=== PATIENT | male | born 1955 | race Caucasian/White ===

== ENCOUNTER 2024-11-17 12:24 | Inpatient (IN) | payer MEDICARE, OTHER ==
[~2024-11-17] VITALS: Ht 177.8 cm; Wt 120.1 kg
[2024-11-17] MEDS ORDERED: METF-1211 PO (12:50)
[2024-11-17] MEDS ORDERED: TAMS0.4C94 PO (12:50)
[2024-11-17] MEDS ORDERED: LISI-662 PO (12:50)
[2024-11-17 13:05] LABS: GLUCOMETER DEV NAME(LOC) ERT.7; GLUCOSE,POINT OF CARE 223 MG/DL (70-110)
[2024-11-17 13:11] LABS: PLATELET COUNT (AUTO) 217 K/uL (150-450); RED BLOOD CELL COUNT(AUTO) 5.00 MIL/uL (4.50-5.90); RED CELL DISTRIBUTION WIDTH 13.8 % (11.5-14.5); WHITE BLOOD COUNT (AUTO) 9.3 K/uL (4.5-11.0)
[2024-11-17 13:21] LABS: CALCIUM, TOTAL 8.6 mg/dL (8.8-10.5); CREATININE 0.51 mg/dL (0.60-1.30); GLOMERULAR FILTR. RATE CALC > 60 mL/min (>60); GLUCOSE,RANDOM 210 mg/dL (70-110); SODIUM SERUM 135 mmol/L (136-145); UREA NITROGEN, BLOOD 11 mg/dL (7-18)
[2024-11-17 13:30] LABS: TROPONIN I-HIGH SENSITIVITY 20 ng/L (<76)
[2024-11-17] MEDS: ONDANSETRON HCL 4 MG/2 ML VIAL IVP ONE (13:34)
[2024-11-17] MEDS: MORPHINE SULFATE 4 MG/ML SYRINGE IVP ONE (13:34)
[2024-11-17] MEDS: ASPIRIN 325 MG TABLET PO ONE (13:35)
[2024-11-17] MEDS: NITROGLYCERIN 2% (1 GM=INCH) OINTMENT PACKET TP ONE (13:35)
[2024-11-17 13:46] LABS: COVID AG,FIA SOURCE NASAL SWAB
[2024-11-17 14:04] LABS: SARS-COV2 (COVID) ANTIGEN,FIA Negative (Negative)
[2024-11-17 14:48] VITALS: PULSE 117; RESP 19; O2SAT 92
[2024-11-17] MEDS: ALBUTEROL SULFATE 2.5 MG/0.5 ML 5 ML NEB SOLUTION NEB ONE (14:48)
[2024-11-17 15:05] LABS: ABG BASE EXCESS 3.3 mmol/L (-2.0-3.0); ABG CARBOXYHEMOGLOBIN 1.2 % (0.5-1.5); ABG HCO3 26.4 mmol/L (21.0-28.0); ABG METHEMOGLOBIN 0.5 % (0.0-1.5); ABG OXYGEN CONTENT 20.9 mL/dL (15.0-23.0); ABG OXYGEN SATURATION 96.5 % (94.0-98.0); ABG OXYHEMOGLOBIN 94.9 % (94.0-98.0); ABG PCO2 51 mmHg (32.0-48.0); ABG PH 7.370 (7.350-7.450); ABG TOTAL HEMOGLOBIN 15.6 G/dL (13.5-17.5); FRACTIONATED INSPIRED OXYGEN 44.0 % (21-100.0); PO2, ARTERIAL BG 86.3 mmHg (83.0-108.0); SOURCE, BLOOD GAS ARTERIAL; TEMPERATURE, FAHRENHEIT, BG 98.1 FAHREN (96.0-98.6)
[2024-11-17 15:06] LABS: ABG A-A DIFF O2 170.1 mmHg (10-20.0); ALLEN TEST, BLOOD GAS Positive; FLOW, BLOOD GAS 6.00 L/min (0.00-15.00); O2 DEVICE,BLOOD GAS AEROSOL MASK (ROOM AIR); SITE, BLOOD GAS LFT RADIAL
[2024-11-17 15:15] VITALS: PULSE 129; RESP 26; O2SAT 94
[2024-11-17] MEDS ORDERED: ACETAMINOPHEN 325 MG TABLET PO PRN (16:30)
[2024-11-17] MEDS ORDERED: IPRATROPIUM BROMIDE 0.5 MG/2.5 ML NEB SOLUTION NEB PRN (16:30)
[2024-11-17] MEDS ORDERED: ONDANSETRON HCL 4 MG/2 ML VIAL IVP PRN (16:30)
[2024-11-17] MEDS ORDERED: ALBUTEROL SULFATE 2.5 MG/0.5 ML NEB SOLUTION NEB PRN (16:30)
[2024-11-17] MEDS ORDERED: BISACODYL 10 MG RECTAL RECTAL SUPPOSITORY PR PRN (16:30)
[2024-11-17] MEDS ORDERED: ZOLPIDEM TARTRATE 5 MG TABLET PO PRN (16:30)
[2024-11-17] MEDS ORDERED: MORPHINE SULFATE 4 MG/ML SYRINGE IVP PRN (16:30)
[2024-11-17] MEDS ORDERED: HYDROCODONE/ACETAMINOPHEN 5-325 MG TABLET PO PRN (16:30)
[2024-11-17] MEDS ORDERED: MAGNESIUM HYDROXIDE SUSPENSION 30 ML UDCUP PO PRN (16:30)
[2024-11-17] MEDS: CefTRIAXone 1 GM/DEXTROSE 50 ML IV SCH (18:02)
[2024-11-17 18:07] VITALS: BP 150/86; PULSE 110; RESP 18; TEMP 98.4; O2SAT 96
[2024-11-17 19:38] VITALS: BP 137/88; PULSE 109; RESP 19; TEMP 97.7; O2SAT 95
[2024-11-17] MEDS: ALBUTEROL SULFATE 2.5 MG/0.5 ML NEB SOLUTION NEB SCH (20:00)
[2024-11-17] MEDS: IPRATROPIUM BROMIDE 0.5 MG/2.5 ML NEB SOLUTION NEB SCH (20:00)
[2024-11-17] MEDS: AZITHROMYCIN 500 MG/NS 250 ML IV SCH (21:24)
[2024-11-17] MEDS: GuaiFENesin SR 600 MG ER TABLET PO SCH (21:26)
[2024-11-17] MEDS: BENZONATATE 100 MG CAPSULE PO SCH (21:26)
[2024-11-17] MEDS: DOCUSATE SODIUM 100 MG CAPSULE PO SCH (21:26)
[2024-11-17] MEDS: HEPARIN SODIUM,PORCINE 5,000 UNITS/ML VIAL SQ SCH (23:39)
[2024-11-18] VITALS (15 sets, daily range): BP systolic 112–148; BP diastolic 68–87; PULSE 106–123; RESP 18–24; TEMP 97.9–98.8; O2SAT 90–98
[2024-11-18] MEDS: TAMSULOSIN HCL 0.4 MG CAPSULE PO SCH (08:16)
[2024-11-18] MEDS: PANTOPRAZOLE SODIUM 40 MG DR TABLET PO SCH (08:17)
[2024-11-18] MEDS ORDERED: SODIUM CHLORIDE 0.9% 500 ML IV ONE (16:33)
[2024-11-19 05:14] VITALS: BP 138/71; PULSE 103; RESP 19; TEMP 98.4; O2SAT 94
[2024-11-19 07:55] VITALS: BP 130/72; PULSE 102; RESP 18; TEMP 98; O2SAT 95
[2024-11-19 08:00] VITALS: PULSE 107; PULSE 110; RESP 18; O2SAT 93
[2024-11-19 08:15] VITALS: PULSE 113; RESP 18; O2SAT 95
== END 2024-11-19 10:15 | disposition left against medical advice (07) | DRG 189 ==
LOC: EMS 12:46 → EDH 16:18 → 5S 17:33
PROVIDERS: ADMIT Internal Medicine; ATTEND Internal Medicine
DX: J96.01 Acute respiratory failure with hypoxia (principal); J44.1 Chronic obstructive pulmonary disease with (acute) exacerbation; J45.901 Unspecified asthma with (acute) exacerbation; Z59.00 Homelessness unspecified; E11.9 Type 2 diabetes mellitus without complications; Z20.822 Contact with and (suspected) exposure to COVID-19; I16.0 Hypertensive urgency; I10 Essential (primary) hypertension; G47.33 Obstructive sleep apnea (adult) (pediatric); N40.0 Benign prostatic hyperplasia without lower urinary tract symptoms; E66.01 Morbid (severe) obesity due to excess calories; Z68.38 Body mass index [BMI] 38.0-38.9, adult; Z87.891 Personal history of nicotine dependence; Z79.899 Other long term (current) drug therapy
CPT/HCPCS: 71045; 80048; 82805; 82962; 83880; 84484; 85025; 85379; 87040; 93005; 94640; 94644; 94760; 97116; 97162; 99291; G0378; J0456; J0696; J1644; J2270; J2405; J2919; J7040; 36415-L1; 36415-TC; J7613